=== PATIENT | female | born 1960 | race Caucasian/White ===

== ENCOUNTER → 2017-09-09 | Outpatient (CLI) | payer OTHER ==
[~2017-09-09] MED LIST: PRED1SUS3 OPR
--- NOTE | 2017-09-09 15:55 | DIAGNOSTIC IMAGING REPORT ---
L FINGER(S) MIN 2 VIEWS ROUTINE CLINICAL HISTORY: Left third finger pain following fall. COMPARISON: None FINDINGS: Alignment of the left third finger is anatomic. There is no acute fracture. There is minimal osteophytosis within the proximal and distal interphalangeal joints of the left third finger. A ring on the fourth finger is noted. IMPRESSION: No acute fracture or dislocation of the left third finger. Electronically signed by: Hema Wagner M.D. 09/09/2017 3:53 PM Dictated Date/Time: 09/09/2017 3:52 PM
--- NOTE | 2017-09-09 15:56 | DIAGNOSTIC IMAGING REPORT ---
R FOOT MIN 3 VIEWS ROUTINE CLINICAL HISTORY: Right foot pain status post trauma COMPARISON: None. DISCUSSION: No fractures or dislocations are visualized. IMPRESSION: No fractures identified. Electronically signed by: Munir Calderon M.D. 09/09/2017 3:55 PM Dictated Date/Time: 09/09/2017 3:54 PM
--- NOTE | 2017-09-09 16:08 | DIAGNOSTIC IMAGING REPORT ---
R WRIST W/NAVICULAR MIN 3 VIEWS CLINICAL HISTORY: RIGHT WRIST PAIN pain. Trauma. COMPARISON: None. DISCUSSION: The bones and joint spaces appear intact. There is no evidence of fracture, dislocation or bony disease. There is no evidence for soft tissue swelling. IMPRESSION: Negative study. The above report was generated using voice recognition software. It may contain grammatical, syntax or spelling errors. Electronically signed by: Prabhakar Hook M.D. 09/09/2017 4:07 PM Dictated Date/Time: 09/09/2017 4:06 PM
--- NOTE | 2017-09-09 16:09 | DIAGNOSTIC IMAGING REPORT ---
R HAND MIN 3 VIEWS ROUTINE CLINICAL HISTORY: Right hand pain status post trauma COMPARISON: None. DISCUSSION: No acute fractures or dislocations are visualized. There is a radiopaque density within the base of the proximal phalanx the thumb. This appears postsurgical. IMPRESSION: Postsurgical changes involving the thumb. No acute fractures or dislocations. Electronically signed by: Munir Calderon M.D. 09/09/2017 4:07 PM Dictated Date/Time: 09/09/2017 4:06 PM
== END | disposition home or self-care (01) ==
LOC: C.RAD1850 15:17
PROVIDERS: ATTEND Nurse Practitioner Adult Health
DX: M79.645 Pain in left finger(s) (principal); M79.641 Pain in right hand; M79.671 Pain in right foot; M25.531 Pain in right wrist; W19.XXXA Unspecified fall, initial encounter; Z98.890 Other specified postprocedural states

== ENCOUNTER → 2017-09-15 | Outpatient (CLI) | payer OTHER ==
--- NOTE | 2017-09-15 11:19 | DIAGNOSTIC IMAGING REPORT ---
CERVICAL SPINE 5 VIEWS CLINICAL HISTORY: Neck pain. FINDINGS: AP, lateral, bilateral oblique, and odontoid views of the cervical spine are obtained. No prior studies are available for comparison at the time of dictation. The skeletal structures are well mineralized. There is no radiographic evidence of fracture or subluxation. The odontoid process and lateral masses appear intact on the open mouth view. The spinolaminar line is preserved. Vertebral body height is maintained. Minimal anterolisthesis is seen at C7-T1. Alignment is otherwise preserved. There is straightening of the cervical lordosis. The spinous processes appear intact. Tiny anterior osteophytes are seen at C5-C6. Mild disc space narrowing is seen at C6-C7. The remaining intervertebral disc spaces are normal. There is no evidence of neuroforaminal stenosis on the oblique views. The prevertebral soft tissues are within normal limits. Visualized apical lung parenchyma appears clear. IMPRESSION: 1. No acute bony abnormality is seen involving the cervical spine. 2. Minimal degenerative change as above. Electronically signed by: Neymar Stephen M.D. 09/15/2017 11:17 AM Dictated Date/Time: 09/15/2017 11:16 AM
== END | disposition home or self-care (01) ==
LOC: C.RAD1850 10:47
PROVIDERS: ATTEND Nurse Practitioner Adult Health
DX: M85.88 Other specified disorders of bone density and structure, other site (principal); W19.XXXA Unspecified fall, initial encounter